=== PATIENT | male | born 1965 | race African-American/Black ===

== ENCOUNTER 2016-05-25 04:57 | Emergency (ER) | payer MEDICARE, OTHER ==
[2016-05-25] MEDS ORDERED: HYDROcod/ACETAM 5/325 MG TABLET PO STA (07:42)
[2016-05-25] MEDS ORDERED: CEPHALEXIN 250 MG CAPSULE PO STA (07:51)
[2016-05-25] MEDS ORDERED: HYDROcod/ACETAM 5/325 MG TABLET ONE (07:57)
[2016-05-25] MEDS ORDERED: CEPHALEXIN 250 MG CAPSULE PO ONE (07:58)
== END 2016-05-25 08:13 | disposition home or self-care (01) ==
DX: M25.522 Pain in left elbow (principal); I10 Essential (primary) hypertension
CPT/HCPCS: 93971; 99283; A9270

== ENCOUNTER 2016-06-16 15:30 | Emergency (ER) | payer MEDICARE, OTHER ==
[2016-06-16] MEDS ORDERED: POTASSIUM BICARB 25 MEQ TABLET PO STA (16:55)
[2016-06-16] MEDS ORDERED: POTASSIUM BICARB 25 MEQ TABLET PO ONE (17:00)
== END 2016-06-16 18:05 | disposition home or self-care (01) ==
DX: R07.9 Chest pain, unspecified (principal); I10 Essential (primary) hypertension
CPT/HCPCS: 36415; 71010; 80053; 83690; 84484; 85025; 85379; 93005; 93010; 99283; 99284; A9270

== ENCOUNTER 2016-07-07 11:03 | Outpatient (CLI) | payer MEDICARE, OTHER | END 2016-07-07 11:04 | disposition home or self-care (01) | DX: E78.5 Hyperlipidemia, unspecified (principal); R73.01 Impaired fasting glucose; K29.70 Gastritis, unspecified, without bleeding ==

== ENCOUNTER 2016-08-10 09:48 | Outpatient (CLI) | payer MEDICARE, OTHER | END 2016-08-10 09:49 | DX: R94.5 Abnormal results of liver function studies (principal); M47.22 Other spondylosis with radiculopathy, cervical region; R73.01 Impaired fasting glucose ==

== ENCOUNTER 2016-09-26 06:59 | Outpatient (CLI) | payer MEDICARE, OTHER | END 2016-09-26 07:00 | disposition EMS.NT ==